=== PATIENT | male | born 1940 | race Caucasian/White ===

== ENCOUNTER 2023-01-15 11:57 | Outpatient (CLI) | payer MEDICARE, BC ==
[2023-01-15] MEDS ORDERED: Iopamidol 370 76% 100 ML VIAL ONE (13:46)
== END 2023-01-15 11:58 | disposition home or self-care (01) ==
LOC: CSHCT 11:57
PROVIDERS: ATTEND Nurse Practitioner Family
DX: I77.810 Thoracic aortic ectasia (principal)
CPT/HCPCS: 71275; 82565; Q9967